=== PATIENT | female | born 1970 ===

== ENCOUNTER 2022-01-14 06:27 | Day surgery (SDC) | payer BC ==
[2022-01-13 09:10] LABS: Hematocrit 39.4 % (36.0-45.0); Lymphocytes % 39.8 % (15.3-44.8); MPV 8.5 fL (7.6-11.3); RBC Red Blood Cell Count 4.28 M/uL (3.86-4.86)
[2022-01-13 09:18] LABS: Potassium 3.9 mmol/L (3.5-5.1)
--- NOTE | 2022-01-13 12:52 | EKG ---
Test Date: 2022-01-13 Test Time: 08:08:20 [employer] Machine Operator: ALEXANDRE MEASUREMENT RESULTS: Intervals: Rate: 66 IL: 142 QRSD: 74 QT: 378 QTc: 396 [place]: P: 40 IL: 142 QRS: 6 T: 50 INTERPRETIVE STATEMENTS: Normal sinus rhythm Normal ECG No previous ECG available for comparison Electronically Signed On 01-13-22 12:51:54 [employer]IOR [employer] by Randy Aguayo
[2022-01-14] MEDS ORDERED: Ringers Lactate 1,000 ML IV ONE (06:43)
[2022-01-14] MEDS ORDERED: MIDAZOLAM HCL 2 MG/2 ML INJ ONE (06:56)
[2022-01-14] MEDS ORDERED: FENTANYL CITR 100 MCG/2 ML ONE (06:56)
[2022-01-14] MEDS ORDERED: LIDOCAINE 1% MPF 5 ML VIAL ONE (06:56)
[2022-01-14] MEDS ORDERED: propofoL 200 MG/20 ML VIAL IV ONE (06:56)
[2022-01-14] MEDS ORDERED: dexAMETHasone 10 MG/ML VIAL ONE (07:00)
[2022-01-14] MEDS: HYDROMORPHONE HCL 1 MG/ML INJ ONE ×2 (08:17→08:22)
[2022-01-14 08:29] VITALS: TEMP 97.3
[2022-01-14 09:17] VITALS: BP 109/73; O2SAT 100
--- NOTE | 2022-01-14 09:33 | OP ---
Date of Procedure: 01/14/2022 Surgeon: Vega Thompson MD Preoperative Diagnosis: Right trigger thumb. Postoperative Diagnosis: Right trigger thumb. Procedure: Right open trigger thumb release. Estimated Blood Loss: Less than 3 cc. Complications: No complications. Pathology Specimens: No pathology specimens sent. Indications For Operation: Ms. Fraga is a patient, who has unfortunately had pain and clicking rela lily to her right thumb. Risks, benefits, and alternatives of different methods of treating this incl uding the possibility of injection, continued observation or surgery. She states she understands anil rything as presented and opts for operative release and specific risks associated this were again dis cussed and she agrees to proceed. Description Of Procedure: The patient was taken to the operating room and placed in supine position. General anesthesia was obtained by staff. Following this, a well-padded tourniquet was placed on t he superior right arm. Right upper extremity was then prepped and draped in the usual fashion proced ure. Following this, the arm was then elevated, but not exsanguinated. Tourniquet was raised. A st andard incision was made transversely at the thumb flexion crease. This was very carefully made thro ugh skin, only meticulous hemostasis being maintained using bipolar electrocautery. After this, mosq uitos were then used to spread in both the vertical and horizontal direction protecting the nerves an d neurovascular structures, which were lightly retracted and the tendon and A1 shahnaz were easily enc ountered. A midline incision was then made using the knife. It was extended from proximal to distal direction until there were no constricting bands. It was then progressed in a distal to proximal di rection until there were no constricting bands. This was double checked with the use of a mosquito. After this, the tourniquet was dropped. There was no significant bleeding and the skin was closed u sing interrupted nylon sutures. The patient was placed in a well-padded sterile dressing, awakened, and taken to recovery room in good condition. There were no complications. SE/MODL Voice ID: [id number] Report ID: [id number]
== END 2022-01-14 09:28 | disposition home or self-care (01) ==
LOC: OR 06:27
PROVIDERS: ATTEND Orthopaedic Surgery
PROC: 0LN70ZZ Release Right Hand Tendon, Open Approach (ICD-10-PCS; principal; 2022-01-14 07:30)
DX: M65.311 Trigger thumb, right thumb (principal); Z20.822 Contact with and (suspected) exposure to COVID-19
CPT/HCPCS: 93005; 85025; 80048; 36415; 26055; U0003; J2704; J2250; J3010; J1100; J1170; J7120